=== PATIENT | male | born 1985 | race African-American/Black ===

== ENCOUNTER 2020-11-24 11:20 | Emergency (ER) | payer SELFPAY ==
[~2020-11-24] VITALS: Ht 182.9 cm; Wt 81.5 kg
[2020-11-24] MEDS ORDERED: PENI500T PO (13:17)
--- NOTE | 2020-11-24 13:17 | PHYS DOC ---
Past Medical History Past Surgical History: Other Additional Past Surgical Histo: KNEE SURGERY Smoking Status: Light Tobacco Smoker Additional Information: 2 CIGARETTES DAILY Alcohol Use: Rarely General Adult EDM: Chief Complaint: SORE THROAT HPI: HPI: Patient is a 35 year old male presents to the emergency department chief complaint of wanting a strep throat test stating his girlfriend was seen here yesterday and tested positive for strep throat and was started on antibiotics. Patient reports he has had the same symptoms which include sore throat for the p ast 2 days. Patient denies taking his temperature and is unaware if he has had fevers. Denies cough or congestion. Denies chest pain, ear pain, headaches, nausea, vomiting, diarrhea. Patient denies rashes to his skin. Patient denies any other physical concerns or physical complaints. Review of Systems: Review of Systems: 14 body systems of review of systems have been reviewed. See HPI for pertinent positives and negative responses, otherwise all other systems are negative, nonpertinent or noncontributory. Constitutional: Negative except as outlined in HPI above. Skin: Negative except as outlined in HPI above. Eyes: Negative except as outlined in HPI above. HENT: Negative except as outlined in HPI above. Respiratory: Negative except as outlined in HPI above. Cardiovascular: Negative except as outlined in HPI above. GI: Negative except as outlined in HPI above. : Negative except as outlined in HPI above. Musculoskeletal: Negative except as outlined in HPI above. Integument: Negative except as outlined in HPI above. Neurologic: Negative except as outlined in HPI above. Endocrine: Negative except as outlined in HPI above. Lymphatic: Negative except as outlined in HPI above. Psychiatric: Negative except as outlined in HPI above. Heart Score: C/O Chest Pain: No Risk Factors: Risk Factors: DM, Current or recent (<one month) smoker, HTN, HLP, family history of CAD, obesity. Risk Scores: Score 0 - 3: 2.5% MACE over next 6 weeks - Discharge Home Score 4 - 6: 20.3% MACE over next 6 weeks - Admit for Clinical Observation Score 7 - 10: 72.7% MACE over next 6 weeks - Early Invasive Strategies Allergies: Allergies: Allergies Coded Allergies Type Severity Reaction Last Updated Verified No Known Drug Allergies 11/24/20 No Physical Exam: PE: Constitutional: Well developed, well nourished, no acute distress, non-toxic appearance. 35-year-old male in no apparent distress. HENT: Normocephalic, atraumatic. Oropharynx moist, no drooling, no trismus, normal dentition, no uvular edema, peritonsillar edema with cobblestoning without peritonsillar abscess or exudative drainage, no laryngeal edema appreciated, speaking in normal voice tones. Bilateral TMs within normal limits, intact. No tongue swelling. Bilateral submental lymphadenopathy, no other lymphadenopathy of the head or neck appreciated. Eyes: Conjunctiva normal, no discharge. Neck: Normal range of motion, no stridor. Cardiovascular: No cyanosis appreciated, distal cap refill less than 2 seconds. Lungs & Thorax: Patient is in no respiratory distress, no audible adventitious lung sounds appreciated. Lung sounds clear to auscultate all lung vides. Abdomen: Nontender, no abnormalities noted. Skin: Warm, dry, no erythema, no rash. Back: No tenderness, no deformities. Extremities: No tenderness, no cyanosis, no clubbing, ROM intact, no edema. Neurologic: Alert and oriented X 3, normal motor function, normal sensory function, no focal deficits noted. Psychologic: Affect normal, judgement normal, mood normal. Current Patient Data: Vital Signs: Vital Signs Date Time Temp Pulse Resp B/P (MAP) Pulse Ox O2 Delivery O2 Flow Rate FiO2 11/24/20 12:50 98.4 66 18 133/91 (105) 97 Room Air 98.4 EKG: EKG: [] Radiology/Procedures: Radiology/Procedures: [] Course & Med Decision Making: Course & Med Decision Making Pertinent Labs and Imaging studies reviewed. (See chart for details) 35-year-old male, vital signs reviewed, presents emergency department concerning strep throat. Patient's physical examination consistent with strep throat, patient's significant other is having same symptoms and was diagnosed yesterday with strep pharyngitis and started on penicillin VK. Will prophylactically treat patient for same. Discussed with patient we will not obtain strep throat culture related to significant other testing positive, will just treat. Patient is amenable to ED planning. Discussed with the patient all findings and diagnostic testing as well as the need to follow-up with their primary care provider for further evaluation and treatment or return to the ED if any new or worsening symptoms. Strict return precautions were also discussed at length, the patient voiced understanding and agreement with the discharge planning. The patient was nontoxic in appearance, in no apparent distress, and hemodynamically stable at the time of disposition. Maribel Disclaimer: Maribel Disclaimer: This electronic medical record was generated, in whole or in part, using a voice recognition dictation system. Departure Departure Impression: Primary Impression: Acute sore throat Disposition: HOME / SELF CARE / HOMELESS Condition: GOOD Referrals: NO PCP (PCP) Patient Instructions: Strep Throat Additional Instructions: You were seen today in the emergency department for sore throat they have you had for the past 2 days. You are not tested today for strep throat however because you are significant other was tested yesterday and positive for strep a pharyngitis and started on penicillin antibiotic regimen, I will start you on the same. I will send your prescription to the pharmacy that you indicated. Please increase your fluid intake, you may use Tylenol and/or Motrin for continued throat discomfort, you may consider trying the [id number] antiseptic throat spray the red color for throat discomfort, please place in your refrigerator as this seems to help with soothing sore throats. Please take the antibiotic as directed until completed. Return to the emergency department for worsening symptoms or other concerns. Thank you for visiting our Emergency Department. It was a pleasure taking care of you today in the emergency department and we appreciate you trusting us with your care. If any additional problems come up don't hesitate to return to visit us. Please follow up with your primary care provider so they can plan additional care if needed and know about the problem that you had. If symptoms worsen come back to the Emergency Department. Any concerning symptoms that start such as chest pain, shortness of air, weakness or numbness on one side of the body, running high fevers or any other concerning symptoms return to the ER. Scripts Penicillin V Potassium (PENICILLIN V POTASSIUM) 500 Mg Tablet 1 TAB PO BID for strep throat, #20 TAB 0 Refills Prov: BALTAZAR MCKEON APRN 11/24/20 BALTAZAR MCKEON APRN Nov 24, 2020 13:17
[2020-11-24 13:33] VITALS: BP 123/81
== END 2020-11-24 13:33 | disposition home or self-care (01) ==
LOC: ER 11:20
DX: J02.9 Acute pharyngitis, unspecified (principal); F17.210 Nicotine dependence, cigarettes, uncomplicated
CPT/HCPCS: 99283

== ENCOUNTER 2020-12-18 12:25 | Emergency (ER) | payer SELFPAY ==
[~2020-12-18] VITALS: Ht 182.9 cm; Wt 80.9 kg
[~2020-12-18 12:25] MED LIST: PENI500T PO
--- NOTE | 2020-12-18 14:05 | RAD ---
EXAM: XR KNEE 4 VIEWS WITH PATELLA_RT 12/18/2020 12:43 PM CLINICAL INDICATION: Pain COMPARISON: None TECHNIQUE: AP, oblique, lateral, and sunrise views of the right knee FINDINGS: There is an oblique lucency in the proximal tibia seen on AP view that may be sequela of o ld injury although acute fracture is possible. Additional lucent and sclerotic tracts in the proximal tibia and distal femur likely related to prior ACL reconstruction. Otherwise, no fracture. Alignment is normal. There is mild tricompartmental joint space narrowing with large osteophytes. Probable 8 m m ossified intra-articular bodies seen in the lateral compartment space. There is a large joint effus ion. Suprapatellar soft tissue swelling. IMPRESSION: 1. Possible proximal tibial shaft fracture versus old injury. Correlate with history and consider ded icated tibia and fibula radiograph to further evaluate as needed. 2. Sclerotic and lucent tracts in the proximal tibia and distal femur likely related to old trauma a nd ACL reconstruction. Correlate with history. 3. Moderate tricompartmental degenerative joint disease, advanced for age. 4. Large joint effusion with probable intra-articular body. Electronically signed by: Lucía Rasmussen MD (12/18/2020 2:03 PM) [id number]
[2020-12-18] MEDS ORDERED: DICL50TA2 PO (15:24)
[2020-12-18] MEDS ORDERED: METH4TAB2 PO (15:24)
[2020-12-18] MEDS ORDERED: NAPROXEN 500 MG TABLET PO STA (15:25)
--- NOTE | 2020-12-18 15:25 | PHYS DOC ---
Past Medical History Past Surgical History: Other Additional Past Surgical Histo: KNEE SURGERY Smoking Status: Current Every Day Smoker Additional Information: 1/2 ppd Alcohol Use: Occasionally General Adult EDM: Chief Complaint: KNEE INJURY HPI: HPI: Patient is a 35-year-old male with previous ACL injury, tibia injury who presents the ED today complaining of a throbbing and intermittent 7 out of 10 right knee pain, symptoms have been going on for 3 days. Patient is also complaining of swelling. States pain is worse on range of motion to the knee. Denies any new injuries. Review of Systems: Review of Systems: Constitutional: Denies fever or chills. [] Musculoskeletal: Reports right knee pain Integument: Denies rash. [] Neurologic: Denies headache, focal weakness or sensory changes. [] Psychiatric: Denies depression or anxiety. [] Heart Score: C/O Chest Pain: N/A Risk Factors: Risk Factors: DM, Current or recent (<one month) smoker, HTN, HLP, family history of CAD, obesity. Risk Scores: Score 0 - 3: 2.5% MACE over next 6 weeks - Discharge Home Score 4 - 6: 20.3% MACE over next 6 weeks - Admit for Clinical Observation Score 7 - 10: 72.7% MACE over next 6 weeks - Early Invasive Strategies Allergies: Allergies: Allergies Coded Allergies Type Severity Reaction Last Updated Verified No Known Drug Allergies 12/18/20 No Physical Exam: PE: Constitutional: Well developed, well nourished, no acute distress, non-toxic appearance. [] Skin: Warm, dry, no erythema, no rash. [] Back: No tenderness, no CVA tenderness. [] Extremities: Right lower extremity with no obvious deformity. Soft tissue swelling noted on the right anterior knee. Tenderness to the right anterior knee. Full passive range of motion to the right knee. +2 right pedal pulse. Cap refill less than 2 seconds the right lower extremity. Neurologic: Alert and oriented X 3, normal motor function, normal sensory function, no focal deficits noted. [] Psychologic: Affect normal, judgement normal, mood normal. [] Current Patient Data: Vital Signs: Vital Signs Date Time Temp Pulse Resp B/P (MAP) Pulse Ox O2 Delivery O2 Flow Rate FiO2 12/18/20 12:41 98.1 65 16 128/86 (100) 98 Room Air 98.1 EKG: EKG: [] Radiology/Procedures: Radiology/Procedures: []PROCEDURE: KNEE RIGHT 4V EXAM: XR KNEE 4 VIEWS WITH PATELLA_RT 12/18/2020 12:43 PM CLINICAL INDICATION: Pain COMPARISON: None TECHNIQUE: AP, oblique, lateral, and sunrise views of the right knee FINDINGS: There is an oblique lucency in the proximal tibia seen on AP view that may be sequela of old injury although acute fracture is possible. Additional lucent and sclerotic tracts in the proximal tibia and distal femur likely related to prior ACL reconstruction. Otherwise, no fracture. Alignment is normal. There is mild tricompartmental joint space narrowing with large osteophytes. Probable 8 mm ossified intra-articular bodies seen in the lateral compartment space. There is a large joint effusion. Suprapatellar soft tissue swelling. IMPRESSION: 1. Possible proximal tibial shaft fracture versus old injury. Correlate with history and consider dedicated tibia and fibula radiograph to further evaluate as needed. 2. Sclerotic and lucent tracts in the proximal tibia and distal femur likely related to old trauma and ACL reconstruction. Correlate with history. 3. Moderate tricompartmental degenerative joint disease, advanced for age. 4. Large joint effusion with probable intra-articular body. Electronically signed by: Lucía Rasmussen MD (12/18/2020 2:03 PM) [id number] DICTATED and SIGNED BY: LUCÍA RASMUSSEN MD DATE: 12/18/20 [id number] 0 Course & Med Decision Making: Course & Med Decision Making Pertinent Labs and Imaging studies reviewed. (See chart for details) This is a 35-year-old male patient presenting today complaining of right knee pain, symptoms for 3 days, no known injury. Right knee x-rays interpreted by radiologist were noted possible proximal tibial shaft fracture versus old injury. Correlate with history and consider dedicated tibia and fibula radiograph to further evaluate as needed.Sclerotic and lucent tracts in the proximal tibia and distal femur likely related to old trauma and ACL reconstruction. Correlate with history. DJD and. Large joint effusion with probable intra-articular body. Patient reports previous history of ACL injury as well as right tibia injury. Immobilizer was applied to the right knee by the lens coating technician, neurovascular exam done by lens coating technician is negative. Ice elevation encouraged. Follow-up with Ortho. Maribel Disclaimer: Maribel Disclaimer: This electronic medical record was generated, in whole or in part, using a voice recognition dictation system. Departure Departure Impression: Primary Impression: Right knee pain Qualified Codes: M25.561 - Pain in right knee Additional Impressions: Degenerative joint disease of knee, right Qualified Codes: M17.11 - Unilateral primary osteoarthritis, right knee Knee joint effusion Qualified Codes: M25.461 - Effusion, right knee Disposition: HOME / SELF CARE / HOMELESS Condition: STABLE Referrals: NO PCP (PCP) JIE DURAN MD follow up in one week Patient Instructions: Arthritis, Nonspecific, [id number], Knee Effusion, [id number], Knee Pain, [id number] Additional Instructions: You were seen in the emergency room for right knee pain, your right knee x-rays were noted for joint effusion/swelling, arthritis otherwise no acute findings. Try to wear the immobilizer provided as tolerated. Try to ice and elevate the extremity. Take the prescribed medication as ordered Scripts Methylprednisolone (MEDROL) 4 Mg Tab.ds.pk 1 PKG PO UD, #1 PKG Prov: JULIO C RITCHIE APRN 12/18/20 Diclofenac Potassium (DICLOFENAC POTASSIUM) 50 Mg Tablet 1 TAB PO BID, #60 TAB 1 Refill Prov: JULIO C RITCHIE APRN 12/18/20 JULIO C RITCHIE APRN Dec 18, 2020 15:24
[2020-12-18 15:29] VITALS: BP 123/81
[2020-12-18] MEDS ORDERED: HYDROcodone/APAP 5/325MG 1 TAB TABLET PO ONE (15:30)
== END 2020-12-18 15:32 | disposition home or self-care (01) ==
LOC: ER 12:25
DX: M17.11 Unilateral primary osteoarthritis, right knee (principal); M25.461 Effusion, right knee; F17.200 Nicotine dependence, unspecified, uncomplicated
CPT/HCPCS: 29505; 73564; 99283

== ENCOUNTER 2021-02-25 09:35 | Emergency (ER) | payer BC ==
[~2021-02-25] VITALS: Ht 182.9 cm; Wt 83.6 kg
[~2021-02-25 09:35] MED LIST changes: +DICL50TA2 PO; +METH4TAB2 PO
--- NOTE | 2021-02-25 10:00 | RAD ---
Site ID: [id number] EXAMINATION: XR CHEST 1V. HISTORY: 35 years Male Reason: dizziness . . COMPARISON: None. Findings: The lungs are clear. The heart size is normal. There is no effusion or pneumothorax. The mediastinum and yomaira appear unremarkable. Impression: Unremarkable study. Electronically signed by: Charlie Millan MD (02/25/2021 9:57 AM) [id number]
[2021-02-25 10:08] LABS: BASO # 0.1 x10^3/uL (0.0-0.2); BASO % 1 % (0-3); EOS # 0.1 x10^3/uL (0.0-0.7); EOS % 1 % (0-3); HEMATOCRIT 43.6 % (39.0-53.0); HEMOGLOBIN 14.9 g/dL (13.0-17.5); LYMPH # 2.2 x10^3/uL (1.0-4.8); LYMPH % 25 % (24-48); MEAN CORPUSCULAR HEMOGLOBIN 29 pg (25-35); MEAN CORPUSCULAR HGB CONC 34 g/dL (31-37); MEAN CORPUSCULAR VOLUME 86 fL (79-100); MONO # 0.5 x10^3/uL (0.0-1.1); MONO % 6 % (0-9); NEUT # 5.7 x10^3/uL (1.8-7.7); NEUT % 67 % (31-73); PLATELET COUNT 226 x10^3/uL (140-400); RED BLOOD COUNT 5.09 x10^6/uL (4.30-5.70); RED CELL DISTRIBUTION WIDTH 13.6 % (11.5-14.5); WHITE BLOOD COUNT 8.5 x10^3/uL (4.0-11.0)
[2021-02-25 10:25] LABS: CALCIUM 8.4 mg/dL (8.5-10.1); CREATININE 0.9 mg/dL (0.7-1.3); GFR 115.5; POTASSIUM 3.7 mmol/L (3.5-5.1)
[2021-02-25 10:28] LABS: ALBUMIN 3.9 g/dL (3.4-5.0); ALBUMIN/GLOBULIN RATIO 1.1 (1.0-1.7); TOTAL BILIRUBIN 0.9 mg/dL (0.2-1.0); TOTAL PROTEIN 7.6 g/dL (6.4-8.2)
[2021-02-25] MEDS ORDERED: diazePAM 5 MG TABLET PO ONE (11:45)
--- NOTE | 2021-02-25 12:04 | RAD ---
Site ID: [id number] EXAMINATION: CT HEAD/BRAIN WO. TECHNIQUE: Noncontrast axial images of the brain were obtained with coronal and sagittal reconstructi ons. One or more of the following radiation dose reduction techniques was used: automated exposure control , adjustment of mA and/or KV according to patient size, and/or utilization of iterative reconstructio n technique. HISTORY: 35 years Male Reason: dizzy, blood in right ear / . FINDINGS: There is no intracranial hemorrhage, edema or mass effect. The brain parenchyma appears un remarkable. Size of the ventricles is appropriate. The visualized portions of the orbits and paranasal sinuses appear unremarkable. The mastoid air cell s and the middle ear cavities appear well-aerated. IMPRESSION: Unremarkable exam. Electronically signed by: Charlie Millan MD (02/25/2021 12:01 PM) [id number]
--- NOTE | 2021-02-25 12:17 | PHYS DOC ---
Past Medical History Past Surgical History: Other Additional Past Surgical Histo: KNEE SURGERY Smoking Status: Never Smoker Alcohol Use: Occasionally General Adult EDM: Chief Complaint: DIZZY/LIGHT HEADED HPI: HPI: 35-year-old male past medical history of peripheral vertigo, presents the ED with his , (patient consents to his/her/their knowledge and involvement in pts' medical care), complaints of dizziness that started around 7:45 AM this morning when patient had just started work. Patient describes the dizziness as feeling unsteady on his feet and as if he would pass out. Reports associated mild headache and weakness. States for the past few weeks has had intermittent right ear bleeding-was told he had perforation and has been suffering from decreased hearing. Has not been seen by ear nose and throat. Has no routine primary care physician. Denies any alcohol, drug use including cocaine or methamphetamines. Is not a tobacco smoker. Denies any blunt head or neck injury-has not fallen and hit his head. Denies any history of high blood pressure, high cholesterol or stroke. No history of COVID. States when he sitting down vertigo is resolved it occurs with any sudden movements and with standing up quickly. Has not been prescribed any meclizine in the past Review of Systems: Review of Systems: Constitutional: Denies fever or chills. [] Eyes: Denies change in visual acuity. [] HENT: Denies nasal congestion or sore throat. [] Respiratory: Denies cough or shortness of breath. [] Cardiovascular: Denies chest pain or edema. [] GI: Denies abdominal pain, nausea, vomiting, bloody stools or diarrhea. [] : Denies incontinence or saddle anesthesia Musculoskeletal: Denies back pain or joint pain. [] Integument: Denies rash or diaphoresis Neurologic: Denies neck stiffness, focal weakness or sensory changes. [] Endocrine: Denies polyuria or polydipsia. [] Lymphatic: Denies swollen glands. [] Psychiatric: Denies depression or anxiety. [] Heart Score: C/O Chest Pain: No Risk Factors: Risk Factors: DM, Current or recent (<one month) smoker, HTN, HLP, family history of CAD, obesity. Risk Scores: Score 0 - 3: 2.5% MACE over next 6 weeks - Discharge Home Score 4 - 6: 20.3% MACE over next 6 weeks - Admit for Clinical Observation Score 7 - 10: 72.7% MACE over next 6 weeks - Early Invasive Strategies Current Medications: Current Medications Medications (Trade) Dose Ordered Sig/Luis E Start Time Stop Time Status Last Admin Dose Admin Diazepam (Valium) 5 mg 1X ONCE 02/25/21 11:45 02/25/21 11:47 DC 02/25/21 11:51 5 MG Allergies: Allergies: Allergies Coded Allergies Type Severity Reaction Last Updated Verified No Known Drug Allergies 12/18/20 No Physical Exam: PE: Constitutional: Well developed, well nourished, no acute distress, non-toxic appearance. HENT: Normocephalic, atraumatic, normal left tympanic membrane, right tympanic membrane with black debris versus dried blood on TM w/no erythema or exudate Eyes: PERRLA, no nystagmus, EOMI, conjunctiva normal, no discharge. Neck: Normal range of motion, supple, Cardiovascular: S1/2 present, regular rhythm Lungs & Thorax: Speaking in full sentences, bilateral equal chest rise, no tachypnea or increased work of breathing Abdomen: soft, no tenderness, Skin: Warm, dry, no erythema, no rash. [] Back: No tenderness, no CVA tenderness. [] Extremities: No tenderness, no cyanosis, no lower extremity edema Neurologic: Cranial nerves II through XII intact, no ataxia, [id number]/rapid alternating movements normal, alert and oriented X 3, normal motor function, normal sensory function, no focal deficits noted, hints exam not performed due to no active dizziness in ED Psychologic: Affect normal, judgement normal, mood normal. [] Current Patient Data: Labs: Laboratory Tests Test 02/25/21 09:58 White Blood Count 8.5 x10^3/uL (4.0-11.0) Red Blood Count 5.09 x10^6/uL (4.30-5.70) Hemoglobin 14.9 g/dL (13.0-17.5) Hematocrit 43.6 % (39.0-53.0) Mean Corpuscular Volume 86 fL (79-100) Mean Corpuscular Hemoglobin 29 pg (25-35) Mean Corpuscular Hemoglobin Concent 34 g/dL (31-37) Red Cell Distribution Width 13.6 % (11.5-14.5) Platelet Count 226 x10^3/uL (140-400) Neutrophils (%) (Auto) 67 % (31-73) Lymphocytes (%) (Auto) 25 % (24-48) Monocytes (%) (Auto) 6 % (0-9) Eosinophils (%) (Auto) 1 % (0-3) Basophils (%) (Auto) 1 % (0-3) Neutrophils # (Auto) 5.7 x10^3/uL (1.8-7.7) Lymphocytes # (Auto) 2.2 x10^3/uL (1.0-4.8) Monocytes # (Auto) 0.5 x10^3/uL (0.0-1.1) Eosinophils # (Auto) 0.1 x10^3/uL (0.0-0.7) Basophils # (Auto) 0.1 x10^3/uL (0.0-0.2) Sodium Level 139 mmol/L (136-145) Potassium Level 3.7 mmol/L (3.5-5.1) Chloride Level 104 mmol/L (98-107) Carbon Dioxide Level 26 mmol/L (21-32) Anion Gap 9 (6-14) Blood Urea Nitrogen 7 mg/dL (8-26) L Creatinine 0.9 mg/dL (0.7-1.3) Estimated GFR (Cockcroft-Gault) 115.5 BUN/Creatinine Ratio 8 (6-20) Glucose Level 93 mg/dL (70-99) Calcium Level 8.4 mg/dL (8.5-10.1) L Magnesium Level 2.0 mg/dL (1.8-2.4) Total Bilirubin 0.9 mg/dL (0.2-1.0) Aspartate Amino Transferase (AST) 19 U/L (15-37) Alanine Aminotransferase (ALT) 36 U/L (16-63) Alkaline Phosphatase 84 U/L (46-116) Troponin I High Sensitivity 4 ng/L (4-75) CL-Fjc-B-Type Natriuretic Peptide 21 pg/mL (0-124) Total Protein 7.6 g/dL (6.4-8.2) Albumin 3.9 g/dL (3.4-5.0) Albumin/Globulin Ratio 1.1 (1.0-1.7) Laboratory Tests 02/25/21 09:58 Laboratory Tests 02/25/21 09:58 Vital Signs: Vital Signs Date Time Temp Pulse Resp B/P (MAP) Pulse Ox O2 Delivery O2 Flow Rate FiO2 02/25/21 11:29 56 16 126/76 (93) 100 Room Air 02/25/21 10:45 98.2 98.2 EKG: EK sinus rhythm 53 bpm, NAD, TWI III, normal intervals, no ST elevation or ST depression, no active chest pain 1043 sinus rhythm 51 bpm, no axis deviation, normal intervals, T wave inversion lead III, no ST elevation or ST depression, no active chest pain Radiology/Procedures: Radiology/Procedures: IMAGING REPORT Signed PATIENT: SHOBHA BOWERS ACCOUNT: [id number] : 1985 LOCATION: ER AGE: 35 SEX: M EXAM STATUS: REG ER ORD. PHYSICIAN: BRITNEY MAYFIELD DO REASON: dizzy, blood in right ear PROCEDURE: CT HEAD WO CONTRAST Site ID: [id number] EXAMINATION: CT HEAD/BRAIN WO. TECHNIQUE: Noncontrast axial images of the brain were obtained with coronal and sagittal reconstructions. One or more of the following radiation dose reduction techniques was used: automated exposure control, adjustment of mA and/or KV according to patient size, and/or utilization of iterative reconstruction technique. HISTORY: 35 years Male Reason: dizzy, blood in right ear / . FINDINGS: There is no intracranial hemorrhage, edema or mass effect. The brain parenchyma appears unremarkable. Size of the ventricles is appropriate. The visualized portions of the orbits and paranasal sinuses appear unremarkable. The mastoid air cells and the middle ear cavities appear well-aerated. IMPRESSION: Unremarkable exam. Electronically signed by: Alexis Anthony MD (02/25/2021 12:01 PM) [id number] DICTATED and SIGNED BY: ALEXIS ANTHONY MD DATE: 02/25/21 [id number] IMAGING REPORT Signed PATIENT: SHOBHA BOWERS ACCOUNT: [id number] : 1985 LOCATION: ER AGE: 35 SEX: M EXAM STATUS: PRE ER ORD. PHYSICIAN: BRITNEY MAYFIELD DO REASON: dizziness PROCEDURE: PORTABLE CHEST 1V Site ID: [id number] EXAMINATION: XR CHEST 1V. HISTORY: 35 years Male Reason: dizziness . . COMPARISON: None. Findings: The lungs are clear. The heart size is normal. There is no effusion or pneumothorax. The mediastinum and yomaira appear unremarkable. Impression: Unremarkable study. Electronically signed by: Alexis Anthony MD (02/25/2021 9:57 AM) [id number] DICTATED and SIGNED BY: ALEXIS ANTHONY MD DATE: 02/25/21 [id number] 0 Course & Med Decision Making: Course & Med Decision Making Pertinent Labs and Imaging studies reviewed. (See chart for details) Concern for fatigable, positional dizziness in the setting of mild headache and generalized weakness. Patient hemodynamically stable, afebrile. Patient with asymptomatic bradycardia. Received in the ED 2 months ago with similar heart rate (65 bpm). On multiple reevaluations, patient asymptomatic. Was treated with volume in the emergency department. CT imaging with no evidence of trauma. Patient denies any head or neck trauma, no URI symptoms. Will discharge home with Antivert. Will discharge home with strict ED return precautions were given for persistent vertigo, neurologic deficits, syncope or head injury. Encouraged urgent outpatient follow-up with PMD and ENT for definitive management of vertigo and questionable right hemotympanum. Life-threatening processes were considered but are low suspicion at this time, given history, physical exam and ED workup. Pt was educated on all prescription medications and adverse effects. All patient's questions were answered and pt was stable at time of discharge. Life/limb-threatening differential includes but is not limited to, cerebrovascular accident, cerebellar stroke, acute coronary syndrome, carbon monoxide poisoning or other toxidrome, syncope differential including cardiac arrhythmia/PE/aortic aneurysm or dissection/ACS, Guillan Wilson syndrome, thyroid disease, infection, central and peripheral vertigo, intracranial hemorrhage, ve rtebrobasilar insufficiency, heat stroke, electrolyte disorder, rheumatologic or autoimmune disorder I have spoken with the patient and/or caregivers. I explained the patient's condition, diagnoses and treatment plan based on the information available to me at this time. I have answered the patient and/or caregiver's questions and addressed any concerns. The patient and/or caregivers have a good understanding of patient's diagnosis, condition and treatment plan as can be expected at this point. Vital signs have been stable. Patient's condition is stable and appropriate for discharge from the emergency department. Patient will pursue further outpatient evaluation with primary care physician or other designated or consulting physician as outlined in the discharge instructions. The patient and/or caregivers are agreeable to this plan of care and follow-up instructions have been explained in detail. The patient and/or caregivers have received these instructions in written form and have expressed an understanding of the discharge instructions. The patient and/or caregivers are aware that any significant change of condition or worsening of symptoms should prompt immediate return to this or the closest emergency department or call to 1. Maribel Disclaimer: [email or web address] Disclaimer: This electronic medical record was generated, in whole or in part, using a voice recognition dictation system. Departure Departure Impression: Primary Impression: Dizziness Disposition: 01 HOME / SELF CARE / HOMELESS Condition: STABLE Referrals: NO PCP (PCP) Follow-up with your primary care physician in 24 to 48 hours OR FOLLOW UP WITH FAMILY MEDICINE: [address] [facility], [facility] [address] [place] [address] Patient Instructions: Dizziness Additional Instructions: FOLLOW UP WITH ENT: FOR DEFINITIVE MANAGEMENT of dizziness and hearing loss Otolaryngology [address] [facility], [address] [place] [address] [facility] [address] [place] [address] [address] [place] [address] EMERGENCY DEPARTMENT GENERAL DISCHARGE INSTRUCTIONS Thank you for coming to [facility] Emergency Department (ED) today and trusting us with you care. We trust that you had a positive experience in our Emergency Department. If you wish to speak to the department management, you may call the Director at [phone]. YOUR FOLLOW UP INSTRUCTIONS ARE FOLLOWS: 1. Do you have a private Doctor? If you do not have a private doctor, please ask for a resource list of physicians or clinics that may be able to assist you with follow up care. 2. The Emergency Physicain has interpreted your x-rays. The X-Ray specialist will also review them. If there is a change in the findings, you will be notified in 48 hours when at all possible. 3. A lab test or culture has been done, your results will be reviewed and you will be notified if you need a change in treatment. ADDITIONAL INSTRUCTIONS AND INFORMATION: 1. Your care today has been supervised by a physician who is specially trained in emergency care. Many problems require more than one evaluation for a complete diagnosis and treatment. We recommend that you schedule your follow up appointment as recommended to ensure complete treatment of you illness or injury. If you are unable to obtain follow up care and continue to have a problem, or if your condition worsens, we recommend that you return to the ED. 2. We are not able to safely determine your condition over the phone nor are we able to give sound medical advice over the phone. For these safety reasons, if you call for medical advice we will ask you to come to the ED for further evaluation. 3. If you have any questions regarding these discharge instructions please call the ED at [phone]. SAFETY INFORMATION: In the interest of safety, wellness, and injury prevention; we encourage you to wear your sealbelt, if you smoke; quite smoking, and we encourage family to use a protective helmet for bicycling and other sporting events that present an increased risk for head injury. IF YOUR SYMPTOMS WORSEN OR NEW SYMPTOMS DEVELOP, OR YOU HAVE CONCERNS ABOUT YOUR CONDITION; OR IF YOUR CONDITION WORSENS WHILE YOU ARE WAITING FOR YOUR FOLLOW UP APPOINTMENT; EITHER CONTACT YOUR PRIMARY CARE DOCTOR, THE PHYSICIAN WHOSE NAME AND NUMBER YOU WERE GIVEN, OR RETURN TO THE ED IMMEDIATELY. Scripts Meclizine Hcl (MECLIZINE HCL) 25 Mg Tablet 1 TAB PO TID for dizziness, #20 TAB Prov: BRITNEY MAYFIELD DO 02/25/21 BRITNEY MAYFIELD DO Feb 25, 2021 12:17
[2021-02-25] MEDS ORDERED: MECL-75 PO (14:14)
[2021-02-25 14:18] VITALS: BP 122/78
--- NOTE | 2021-02-26 06:34 | EKG ---
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
--- NOTE | 2021-02-26 06:35 | EKG ---
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
== END 2021-02-25 14:23 | disposition home or self-care (01) ==
LOC: ER 09:35
DX: R42 Dizziness and giddiness (principal); R51.9 Headache, unspecified; R53.1 Weakness
CPT/HCPCS: 36415; 70450; 71045; 80053; 83735; 83880; 84484; 85025; 93005; 99285-25

== ENCOUNTER 2021-04-03 13:48 | Emergency (ER) | payer BC ==
[~2021-04-03] VITALS: Ht 182.9 cm; Wt 82.9 kg
[~2021-04-03 13:48] MED LIST changes: +MECL-75 PO
--- NOTE | 2021-04-03 14:18 | PHYS DOC ---
Past Medical History Past Medical History: No Pertinent History Past Surgical History: Other Additional Past Surgical Histo: KNEE SURGERY Smoking Status: Current Every Day Smoker Alcohol Use: Occasionally Drug Use: None General Adult EDM: Chief Complaint: CHEST PAIN HPI: HPI: Patient is a 36-year-old male that presents today with chest pain. Patient states she was sitting watching a movie last night at and around 930 last night his pain started. Patient denies shortness of air, nausea vomiting, cough, or fever and chills with this pain. Patient states that centrally located substernally and radiates to his back. Patient denies any swelling in his legs. Review of Systems: Review of Systems: Constitutional: Denies fever or chills. [] Eyes: Denies change in visual acuity. [] HENT: Denies nasal congestion or sore throat. [] Respiratory: Denies cough or shortness of breath. [] Cardiovascular: Chest pain GI: Denies abdominal pain, nausea, vomiting, bloody stools or diarrhea. [] : Denies dysuria. [] Musculoskeletal: Denies back pain or joint pain. [] Integument: Denies rash. [] Neurologic: Denies headache, focal weakness or sensory changes. [] Endocrine: Denies polyuria or polydipsia. [] Lymphatic: Denies swollen glands. [] Psychiatric: Denies depression or anxiety. [] Heart Score: C/O Chest Pain: Yes HEART Score for Chest Pain: HEART Score for Chest Pain Response (Comments) Value History Slighlty/Non-Suspicious 0 ECG Normal 0 Age < 45 0 Risk Factors 1 or 2 Risk Factors 1 Troponin < Normal Limit 0 Total 1 Risk Factors: Risk Factors: DM, Current or recent (<one month) smoker, HTN, HLP, family history of CAD, obesity. Risk Scores: Score 0 - 3: 2.5% MACE over next 6 weeks - Discharge Home Score 4 - 6: 20.3% MACE over next 6 weeks - Admit for Clinical Observation Score 7 - 10: 72.7% MACE over next 6 weeks - Early Invasive Strategies Allergies: Allergies: Allergies Coded Allergies Type Severity Reaction Last Updated Verified No Known Drug Allergies 12/18/20 No Physical Exam: PE: Constitutional: Well developed, well nourished, no acute distress, non-toxic appearance. [] HENT: Normocephalic, atraumatic, bilateral external ears normal, oropharynx moist, no oral exudates, nose normal. [] Eyes: PERRLA, EOMI, conjunctiva normal, no discharge. [] Neck: Normal range of motion, no tenderness, supple, no stridor. [] Cardiovascular:Heart rate regular rhythm, no murmur [] Lungs & Thorax: Bilateral breath sounds clear to auscultation [] Abdomen: Bowel sounds normal, soft, no tenderness, no masses, no pulsatile masses. [] Skin: Warm, dry, no erythema, no rash. [] Back: No tenderness, no CVA tenderness. [] Extremities: No tenderness, no cyanosis, no clubbing, ROM intact, no edema. [] Neurologic: Alert and oriented X 3, normal motor function, normal sensory function, no focal deficits noted. [] Psychologic: Affect normal, judgement normal, mood normal. [] Current Patient Data: Labs: Laboratory Tests Test 04/03/21 14:30 04/03/21 14:55 04/03/21 16:35 04/03/21 17:30 White Blood Count 12.2 x10^3/uL Red Blood Count 5.35 x10^6/uL Hemoglobin 15.3 g/dL Hematocrit 45.5 % Mean Corpuscular Volume 85 fL Mean Corpuscular Hemoglobin 29 pg Mean Corpuscular Hemoglobin Concent 34 g/dL Red Cell Distribution Width 13.1 % Platelet Count 230 x10^3/uL Neutrophils (%) (Auto) 75 % Lymphocytes (%) (Auto) 19 % Monocytes (%) (Auto) 5 % Eosinophils (%) (Auto) 1 % Basophils (%) (Auto) 1 % Neutrophils # (Auto) 9.1 x10^3/uL Lymphocytes # (Auto) 2.3 x10^3/uL Monocytes # (Auto) 0.6 x10^3/uL Eosinophils # (Auto) 0.1 x10^3/uL Basophils # (Auto) 0.1 x10^3/uL Prothrombin Time 13.5 SEC Prothromb Time International Ratio 1.0 Activated Partial Thromboplast Time 30 SEC D-Dimer (Ginger) < 0.27 ug/mlFEU Sodium Level 140 mmol/L Potassium Level 3.6 mmol/L Chloride Level 105 mmol/L Carbon Dioxide Level 26 mmol/L Anion Gap 9 Blood Urea Nitrogen 11 mg/dL Creatinine 0.8 mg/dL Estimated GFR (Cockcroft-Gault) 131.6 BUN/Creatinine Ratio 14 Glucose Level 119 mg/dL Calcium Level 8.5 mg/dL Total Bilirubin 1.0 mg/dL Aspartate Amino Transf (AST/SGOT) 21 U/L Alanine Aminotransferase (ALT/SGPT) 42 U/L Alkaline Phosphatase 81 U/L Troponin I High Sensitivity 5 ng/L 5 ng/L YT-Bdd-P-Type Natriuretic Peptide 12 pg/mL Total Protein 7.6 g/dL Albumin 3.7 g/dL Albumin/Globulin Ratio 0.9 Lipase 167 U/L Urine Opiates Screen Neg Urine Methadone Screen Neg Urine Barbiturates Neg Urine Phencyclidine Screen Neg Urine Amphetamine/Methamphetamine Neg Urine Benzodiazepines Screen Neg Urine Cocaine Screen Neg Urine Cannabinoids Screen Neg Urine Ethyl Alcohol Neg Current Medications Medications (Trade) Dose Ordered Sig/Luis E Route PRN Reason Start Time Stop Time Status Last Admin Dose Admin Aspirin (Aspirin Chewable) 324 mg 1X ONCE PO 04/03/21 14:30 04/03/21 14:31 DC 04/03/21 14:40 Vital Signs: Vital Signs Date Time Temp Pulse Resp B/P (MAP) Pulse Ox O2 Delivery O2 Flow Rate FiO2 04/03/21 18:04 74 14 126/85 (99) 99 Room Air 04/03/21 17:34 58 13 121/78 (92) 99 Room Air 04/03/21 17:04 50 12 113/68 (83) 99 Room Air 04/03/21 16:34 54 17 119/78 (92) 100 Room Air 04/03/21 16:04 62 17 124/89 (101) 98 Room Air 04/03/21 15:34 58 13 121/75 (90) 99 Room Air 04/03/21 15:04 62 17 124/68 (86) 99 Room Air 04/03/21 14:34 62 13 126/81 (96) 99 Room Air 04/03/21 14:15 98.0 60 16 120/67 (84) 100 Room Air 98.0 Vital Signs Date Time Temp Pulse Resp B/P (MAP) Pulse Ox O2 Delivery O2 Flow Rate FiO2 04/03/21 15:34 58 13 121/75 (90) 99 Room Air 04/03/21 15:04 62 17 124/68 (86) 99 Room Air 04/03/21 14:34 62 13 126/81 (96) 99 Room Air 04/03/21 14:15 98.0 60 16 120/67 (84) 100 Room Air 98.0 EKG: EKG: EKG done at [address] Lainez at 1417 no STEMI sinus bradycardia with no ectopy at a rate of 54 [place] interval of 182 ms with a QTC of 398 ms. [] Radiology/Procedures: Radiology/Procedures: REASON: Chest pain PROCEDURE: PORTABLE CHEST 1V EXAM: CHEST 1 VIEW History: Chest pain COMPARISON: 02/25/2021 TECHNIQUE: Single portable radiograph of the chest FINDINGS: The cardiac silhouette is unremarkable. The lungs are clear bilaterally. The costophrenic sulci are clear and well demarcated. IMPRESSION: No radiographic evidence of an acute cardiopulmonary process. Electronically signed by: Konstantin Avendano MD (04/03/2021 2:50 PM) [id number] [] Course & Med Decision Making: Course & Med Decision Making Pertinent Labs and Imaging studies reviewed. (See chart for details) 1899 did review radiological and laboratory results with patient. Did inform patient his troponin was negative here in the department but it is recommended that he follow-up with cardiology clinic within the next 72 hours and to follow- up with his primary care physician on Tuesday for further management also of the pain as well. Patient was informed that if pain gets worse or changes anyway or he has increased shortness of breath sweats or fever associated with it to ret urn to the emergency department. Patient verbalized understanding of this is and is agreeable to the plan of care. Maribel Disclaimer: Maribel Disclaimer: This electronic medical record was generated, in whole or in part, using a voice recognition dictation system. Departure Departure Impression: Primary Impression: Chest pain Qualified Codes: R07.9 - Chest pain, unspecified Disposition: HOME / SELF CARE / HOMELESS Condition: STABLE Referrals: NO PCP (PCP) MAGDI MUNIZ MD [facility] Patient Instructions: Chest Pain (Nonspecific), Smoking Cessation Additional Instructions: Follow-up on Tuesday with Dr. Muniz's office for an appointment for further evaluation of your chest pain. Follow-up with your primary care on Tuesday at [facility] for further evaluation of your chest pain as well. Stop smoking that does put you at increased risk for cardiac disease. Return to the emergency department if your pain worsens or changes anyway, you have nausea and vomiting, shortness of air associated with your pain. JAMIE MALHOTRA APRN Apr 03, 2021 14:18
[2021-04-03] MEDS ORDERED: ASPIRIN CHEWABLE 81 MG TABLET. PO ONE (14:30)
[2021-04-03 14:50] LABS: BASO # 0.1 x10^3/uL (0.0-0.2); BASO % 1 % (0-3); EOS # 0.1 x10^3/uL (0.0-0.7); EOS % 1 % (0-3); HEMATOCRIT 45.5 % (39.0-53.0); HEMOGLOBIN 15.3 g/dL (13.0-17.5); LYMPH # 2.3 x10^3/uL (1.0-4.8); LYMPH % 19 % (24-48); MEAN CORPUSCULAR HEMOGLOBIN 29 pg (25-35); MEAN CORPUSCULAR HGB CONC 34 g/dL (31-37); MEAN CORPUSCULAR VOLUME 85 fL (79-100); MONO # 0.6 x10^3/uL (0.0-1.1); MONO % 5 % (0-9); NEUT # 9.1 x10^3/uL (1.8-7.7); NEUT % 75 % (31-73); PLATELET COUNT 230 x10^3/uL (140-400); RED BLOOD COUNT 5.35 x10^6/uL (4.30-5.70); RED CELL DISTRIBUTION WIDTH 13.1 % (11.5-14.5); WHITE BLOOD COUNT 12.2 x10^3/uL (4.0-11.0)
--- NOTE | 2021-04-03 14:52 | RAD ---
EXAM: CHEST 1 VIEW History: Chest pain COMPARISON: 02/25/2021 TECHNIQUE: Single portable radiograph of the chest FINDINGS: The cardiac silhouette is unremarkable. The lungs are clear bilaterally. The costophrenic sulci are clear and well demarcated. IMPRESSION: No radiographic evidence of an acute cardiopulmonary process. Electronically signed by: Konstantin Avendano MD (04/03/2021 2:50 PM) [id number]
[2021-04-03 15:19] LABS: CALCIUM 8.5 mg/dL (8.5-10.1); CREATININE 0.8 mg/dL (0.7-1.3); GFR 131.6; PARTIAL THROMBOPLASTIN TIME 30 SEC (24-38); POTASSIUM 3.6 mmol/L (3.5-5.1); PROTHROMBIN TIME PATIENT 13.5 SEC (11.7-14.0)
[2021-04-03 15:22] LABS: D-DIMER < 0.27 ug/mlFEU (0.00-0.50)
[2021-04-03 15:25] LABS: ALBUMIN 3.7 g/dL (3.4-5.0); ALBUMIN/GLOBULIN RATIO 0.9 (1.0-1.7); TOTAL PROTEIN 7.6 g/dL (6.4-8.2)
--- NOTE | 2021-04-03 16:35 | EKG ---
[facility] [address] [place] [address] Test Date: 2021-04-03 Test Time: 14:13:04 Pat Name: SHOBHA BOWERS Department: Room: Gender: M Lean Leader: : 1985 Requested By: JAMIE MALHOTRA Order Number: [id number] Reading MD: Jim Muniz MD Measurements Intervals [place] Rate: 54 P: 0 [place]: 182 QRS: 24 QRSD: 86 T: 48 QT: 418 QTc: 398 Interpretive Statements SINUS RHYTHM Electronically Signed On 04-06-2021 9:30:13 CHIEF NUCLEAR MEDICINE TECHNOLOGIST by Jim Muniz MD
[2021-04-03 16:59] LABS: BARBITURATES NEG (NEG); BENZODIAZEPINES NEG (NEG); CANNABINOIDS NEG (NEG); COCAINE NEG (NEG); METHADONE NEG (NEG); OPIATES NEG (NEG); PHENCYCLIDINE NEG (NEG)
[2021-04-03 17:00] LABS: AMPHETAMINE/METHAMPHETAMINE NEG (NEG)
--- NOTE | 2021-04-03 17:41 | EKG ---
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
[2021-04-03 19:04] VITALS: BP 120/56
== END 2021-04-03 19:38 | disposition home or self-care (01) ==
LOC: ER 13:48
DX: R07.2 Precordial pain (principal); F17.200 Nicotine dependence, unspecified, uncomplicated
CPT/HCPCS: 36415; 71045; 80053; 80307; 83690; 83880; 84484; 85025; 85379; 85610; 85730; 93005; 99285-25

== ENCOUNTER → 2021-05-14 | Outpatient (CLI) | payer BC ==
--- NOTE | 2021-05-15 17:10 | CARD ---
MR#: [id number] Date of Study: 05/14/2021 Ordering Physician: MAGDI ALLRED, Referring Physician: MAGDI ALLRED, Tech: Dominick Gomez [facility] APPROVED REPORT INDICATION Chest Pain RISK FACTORS Smoking Reason : Patient complained of pain PROCEDURE The patient underwent an Exercise Stress Test using the Dilshad Protocol. Blood pressure, heart rate, a nd EKG were monitored. An Echocardiogram was performed by stress test technician in four stages in quad fashion. At peak stress four se lected images were obtained and placed side by side with resting images for comparison. STRESS ECHO FINDINGS The resting Echocardiogram showed normal left ventricular systolic contractility with an estimated Ej ection Fraction of about 55 %. The Resting Echocardiogram showed normal augmentation of myocardial wall segments using a 16 segment model. The Stress Echocardiogram showed normal augmentation of myocardial wall segments using a 16 segment m noemi. The Stress Echocardiogram left ventricular systolic contractility has an estimated Ejection Fraction of about 65%. Test Type: Exercise Stress Nurse/Tech: Gayatri Contreras R.N. Test Indications: c/p Cardiac History and Allergies: see ehr Medications: see ehr Medical History: see ehr Resting ECG: SR Resting Heart Rate: 89 bpm Resting Blood Pressure: 125/65mmHg Pretest Chest Pain: No chest pain Nurse/Tech Notes S1S2, lungs CTA Consent: The procedure was explained to the patient in lay terms. Informed consent was witnessed. Arturo eout was entered into [employer]. History and Stress Test performed by Gayatri Contreras R.N. Stress Symptoms fatigue POST EXERCISE Reason for Termination: Reached target heart rate Target HR: Yes Max HR: 168 bpm 92% of Maximum Predicted HR: 183 bpm Exercise duration: 10:54 min:sec, 4 Stage Exercise capacity: 12.8METs Max Blood Pressure: 174/76mmHg Blood Pressure response to exercise: Normal blood pressure response during stress. Heart Rate response to exercise: wnl Chest Pain: No. Arrhythmia: No. ST Change: No. INTERPRETATION Stress EKG Conclusion: The resting EKG showed a sinus rhythm with mild nonspecific ST segment changes . The stress EKG showed no significant changes from baseline. No EKG evidence of stress-induced ischemia. <Conclusion> 1. Good exercise tolerance with the patient walking for 10 minutes and 54 seconds on a Dilshad protoco l. 2. No reported chest pain with exertion. 3. No EKG evidence of stress-induced ischemia. 4. Normal LV systolic function at rest. 5. Normal LV response to exertion with no regional wall motion abnormalities and appropriate increas e in ejection fraction. 6. Low risk treadmill echo stress test. Signed by : Kevin Knox MD Electronically Approved : 05/15/2021 17:10:29
== END ==
LOC: ECHO 14:08
PROVIDERS: ATTEND Internal Medicine Cardiovascular Disease
DX: R07.9 Chest pain, unspecified (principal)
CPT/HCPCS: 93017; 93350